=== PATIENT | female | born 1990 | race Caucasian/White ===

== ENCOUNTER 2017-02-21 13:09 | Emergency (ER) | END 2017-02-21 15:16 | disposition left against medical advice (07) ==

== ENCOUNTER 2018-05-03 16:04 | Emergency (ER) | payer OTHER ==
[~2018-05-03] VITALS: Ht 162.6 cm; Wt 57.4 kg
[~2018-05-03 16:04] MED LIST: CYAN1TAB14 PO; FERR28TA PO; PREN1TAB33 PO
[2018-05-03 16:08] VITALS: BP 115/71; PULSE 85; RESP 20; Ht 162.6 cm; Wt 57.4 kg
[2018-05-03] MEDS ORDERED: AMOX500C2 PO (19:17)
[2018-05-03] MEDS ORDERED: IBUP-1542 PO (19:17)
--- NOTE | 2018-05-03 19:32 | ERD ---
ER Documentation Chief Complaint Chief Complaint SOB and cough x 2 days HPI 28-year-old healthy female with no significant past medical or surgical history who presents with 2-day complaint of sore throat and persistent productive cough. Cough productive of yellow sputum. States she had a daughter who was sick and presented to the ED not too long ago for fevers and URI type symptoms and was treated for bronchitis. She otherwise denies fevers, chest pain, nausea and vomiting, abdominal pain, diarrhea, urinary symptoms. She reports no dysphasia and eating and drinking without issue. States she tried Mucinex which helped only moderately with symptoms. She is most concerned about sore throat which he said it made worse by coughing. She otherwise is without complaint. ROS All systems reviewed and are negative except as per history of present illness. Medications Home Meds Active Scripts Ibuprofen* (Motrin*) 600 Mg Tab, 600 MG PO Q6, #30 TAB Prov:RODNEY GOLDSMITH PA-C 05/03/18 Amoxicillin* (Amoxicillin*) 500 Mg Cap, 500 MG PO BID for 10 Days, CAP Prov:RODNEY GOLDSMITH PA-C 05/03/18 Reported Medications Cyanocobalamin/Fa/Pyridoxine (FOLIC ACID 2.5 MG TABLET) 1 Each Tablet, 1 EACH PO DAILY 06/20/13 Ferrous Sulfate (Ferrous Sulfate) 1 Tab Tablet, 1 TAB PO DAILY 06/20/13 Vit/Fe Fumarate/Fa ( Tablet) 1 Tab Tablet, 1 TAB PO DAILY 06/20/13 Allergies Allergies: Coded Allergies: No Known Allergy (Unverified , 06/20/13) PMhx/Soc Medical and Surgical Hx: pt denies Medical Hx, pt denies Surgical Hx Hx Alcohol Use: Yes Hx Substance Use: No Hx Tobacco Use: Yes Smoking Status: Never smoker FmHx Family History: No diabetes, No coronary disease, No other Physical Exam Vitals Vital Signs Date Temp Pulse Resp B/P (MAP) Pulse Ox O2 O2 Flow FiO2 Time Delivery Rate 05/03/18 98.5 85 20 115/71 96 16:08 (86) Physical Exam I have reviewed the triage vital signs. Const: Well nourished, well developed, appears stated age Eyes: PERRL, no conjunctival injection HENT: NCAT, Neck supple without meningismus, tonsillar edema, erythema no exudates, no anterior cervical lymphadenopathy, no lesions noted, no petechiae CV: RRR, Warm, well-perfused extremities RESP: CTAB, Unlabored respiratory effort GI: soft, non-tender, non-distended, no masses MSK: No gross deformities appreciated Skin: Warm, dry. No rashes Neuro: Alert, upholstery sewer II-XII grossly intact. Sensation and motor function of extremities grossly intact. Psych: Appropriate mood and affect. Procedures/MDM 28 yo F pt presenting with worsening of sore throat with reassuring exam. Exam most consistent with strep pharyngitis. Plan: Tor treat for presumptive strep pharyngitis with amoxicillin 10 days course. PMD follow up and strict return precautions. No history of immunocompromise. Nontoxic appearance. Patient euvolemic with no trismus and no airway compromise. Able to tolerate PO. Unlikely [employer], RPA, Ludwigs, epiglottitis, acute HIV, or EBV. Centor negative for strep. Plan to DC home with prompt outpatient PCP follow up; return precautions discussed. Unlikely EBV/[place]: No prolonged course, no posterior LAD, no splenomegaly Unlikely acute HIV: No LAD, No GI upset, no skin rash, not IVDU No peritonsillar abscess: No LAD, no hot potato voice, no uvular displacement,, afebrile No retropharyngeal abscess: No neck pain, no dysphagia, No LAD, no croup like cough, afebrile No obstructive processes such as obstructive goiter or ludwigs angina Departure Diagnosis: Primary Impression: Strep pharyngitis Condition: Stable Patient Instructions: Strep Throat Referrals: [facility] YOU HAVE RECEIVED A MEDICAL SCREENING EXAM AND THE RESULTS INDICATE THAT YOU DO NOT HAVE A CONDITION THAT REQUIRES URGENT TREATMENT IN THE EMERGENCY DEPARTMENT. FURTHER EVALUATION AND TREATMENT OF YOUR CONDITION CAN WAIT UNTIL YOU ARE SEEN IN YOUR DOCTORS OFFICE WITHIN THE NEXT 1-2 DAYS. IT IS YOUR RESPONSIBILITY TO MAKE AN APPOINTMENT FOR FOLOW-UP CARE. IF YOU HAVE A PRIMARY DOCTOR --you should call your primary doctor and schedule an appointment IF YOU DO NOT HAVE A PRIMARY DOCTOR YOU CAN CALL OUR PHYSICIAN REFERRAL HOTLINE AT IF YOU CAN NOT AFFORD TO SEE A PHYSICIAN YOU CAN CHOSE FROM THE FOLLOWING [facility] [address] [facility]. [facility] [address] [facility] [address] [facility] [facility] [address] [facility]. [facility] [address] [facility]. [facility]. [address] Additional Instructions: Call your primary care doctor TOMORROW for an appointment during the next 2-3 days.See the doctor sooner or return here if your condition worsens before your appointment time. RODNEY GOLDSMITH PA-C May 03, 2018 19:30
== END 2018-05-03 19:45 | disposition home or self-care (01) ==
LOC: FTE 16:04
DX: J02.0 Streptococcal pharyngitis (principal); Z87.891 Personal history of nicotine dependence
CPT/HCPCS: 99283